=== PATIENT | male | born 1965 | race Caucasian/White ===

== ENCOUNTER 2019-05-25 12:37 | Emergency (ER) | payer OTHER ==
[2019-05-25] MEDS ORDERED: Doxycycline 100 MG Cap PO ONE (13:35)
[2019-05-25] MEDS ORDERED: Bacitracin Oint 1 GM U/D Packet TOP ONE (13:36)
--- NOTE | 2019-05-25 13:39 | EDM.PDOC ---
ED HPI GENERAL MEDICAL PROBLEM - General Stated Complaint: TICK BITE Time Seen by Provider: 05/25/19 13:30 Source of Information: Reports: Patient History Limitations: Reports: No Limitations - History of Present Illness INITIAL COMMENTS - FREE TEXT/NARRATIVE: Damion is a 54 year old male, presents to the ED today with concerns of an embedded tick to right lower abdomen. Denies any symptoms of infection or tick borne illness. Thinks tick likely has been there since yesterday. It is a deer tick. Duration: Day(s): (2) ED ROS GENERAL - Review of Systems Review Of Systems: ROS reveals no pertinent complaints other than HPI. ED EXAM, SKIN/RASH Exam: See Below Exam Limited By: No Limitations General Appearance: Alert, WD/WN, No Apparent Distress Head: Atraumatic Neck: Normal Inspection, Supple, Non-Tender Respiratory/Chest: No Respiratory Distress Cardiovascular: Regular Rate, Rhythm Extremities: Normal Inspection Neurological: Alert, Oriented, CN II-XII Intact Psychiatric: Normal Affect, Normal Mood Skin: Warm, Dry, Intact, Other (deer tick, mildly engorged to right lower abdomen, removed including head) Characteristics: Other (mild surrounding erythema) Lymphatic: No Adenopathy Course - Vital Signs Last Recorded V/S: Last Vital Signs Temp 36.6 C 05/25/19 13:22 Pulse 61 05/25/19 13:22 Resp 19 05/25/19 13:22 BP 111/78 05/25/19 13:22 Pulse Ox 96 05/25/19 13:22 Damion is a 54 year old male who presents to the ED with embedded tick to abdomen. Please refer to HPI and focused exam. [place] tick removed in it's entirety, mild surrounding erythema to bite are, no evidence of Bull's eye rash or systemic complaints. NO evidence of cellulitis. Patient given a dose of Doxycycline here for prophylaxis, Bacitracin to area of tick removal. Instructions to return discussed. Patient agreeable and discharged in stable condition. - Orders/Labs/Meds Orders: Active Orders 24 hr Category Date Time Status Bacitracin [Bacitracin Oint 1 GM] Med 05/25/19 13:36 Once 1 dose TOP ONETIME ONE Doxycycline [Vibramycin] Med 05/25/19 13:35 Once 200 mg PO ONETIME ONE Departure - Departure Time of Disposition: 14:00 Disposition: Home, Self-Care 01 Condition: Good Clinical Impression: Tick bite of abdominal wall Qualifiers: Encounter type: initial encounter Qualified Code(s): S30.861A - Insect bite ( nonvenomous) of abdominal wall, initial encounter; W57.XXXA - Bitten or stung by nonvenomous insect and other nonvenomous arthropods, initial encounter - Discharge Information Instructions: Insect Bite, Adult, [id number] Referrals: PCP,None [Primary Care Provider] - - My Orders Last 24 Hours: My Active Orders 05/25/19 13:35 Doxycycline [Vibramycin] 200 mg PO ONETIME ONE 05/25/19 13:36 Bacitracin [Bacitracin Oint 1 GM] 1 dose TOP ONETIME ONE - Assessment/Plan Last 24 Hours: My Active Orders 05/25/19 13:35 Doxycycline [Vibramycin] 200 mg PO ONETIME ONE 05/25/19 13:36 Bacitracin [Bacitracin Oint 1 GM] 1 dose TOP ONETIME ONE
== END 2019-05-25 14:51 | disposition home or self-care (01) ==
LOC: JP.ED 12:37
DX: S30.861A Insect bite (nonvenomous) of abdominal wall, initial encounter (principal); W57.XXXA Bitten or stung by nonvenomous insect and other nonvenomous arthropods, initial encounter
CPT/HCPCS: 99281; A9270

== ENCOUNTER 2020-11-09 08:04 | Day surgery (SDC) | payer MEDICAID, OTHER ==
[~2020-11-09 08:04] MED LIST: Sodium Chloride 0.9% 1,000 ML IV SCH
[2020-11-09] MEDS ORDERED: Sodium Chloride 0.9% 1,000 ML IV SCH (09:00)
[2020-11-09] MEDS ORDERED: Midazolam 1 MG/ML 2 ML SDV ONE (09:41)
[2020-11-09] MEDS ORDERED: fentaNYL 100 MCG/2 ML SDV ONE (09:41)
[2020-11-09] MEDS ORDERED: Propofol 200 MG/20 ML SDV ONE (09:42)
--- NOTE | 2020-11-09 14:25 | OR ---
DATE OF PROCEDURE: 11/09/2020 SURGEON: Benson Hogan MD PROCEDURE: Colonoscopy. FINDINGS: Normal colonoscopy. COMPLICATIONS: None. [employer] DEVEL[employer]: None. ANESTHESIA: MAC. PREOPERATIVE DIAGNOSIS: Screening colonoscopy/history of colon polyps. POSTOPERATIVE DIAGNOSIS: Screening colonoscopy/history of colon polyps. RISKS: Risks, benefits, alternatives, and limitations including, but not limited to infection, bleeding, perforation, false positives and false negatives were all explained to the patient who wished to proceed. PROCEDURE IN DETAIL: The patient was placed in left lateral decubitus position. Digital rectal exam was performed without abnormality. Scope was introduced and advanced atraumatically to the ileocecal valve. Scope was brought back to the ascending and transverse colon and retroflexed. No polyps, no colitis. No old or new blood. No diverticulosis. Greater than 8 minutes was spent removing the scope. The patient tolerated the procedure well and the prep was acceptable with approximately 85% to 90% of the luminal surface. Benson Hogan MD /[id number]
== END 2020-11-09 12:42 | disposition home or self-care (01) ==
LOC: JP.SDS 08:04
PROVIDERS: ATTEND Surgery
DX: Z12.11 Encounter for screening for malignant neoplasm of colon (principal); Z86.010 Personal history of colon polyps
CPT/HCPCS: 36415; 80053; 80061; 85025; J2250; J2704; J3010; J7030

== ENCOUNTER 2023-02-05 11:25 | Emergency (ER) | payer MEDICAID | END 2023-02-05 12:10 | disposition home or self-care (01) | LOC: JP.ED 11:25 | DX: S00.96XA Insect bite (nonvenomous) of unspecified part of head, initial encounter (principal); S80.862A Insect bite (nonvenomous), left lower leg, initial encounter; S80.861A Insect bite (nonvenomous), right lower leg, initial encounter; W57.XXXA Bitten or stung by nonvenomous insect and other nonvenomous arthropods, initial encounter; Z86.16 Personal history of COVID-19 | CPT/HCPCS: 99281 ==